=== PATIENT | male | born 1945 | race Caucasian/White ===

== ENCOUNTER 2017-04-05 18:08 | Emergency (ER) | payer MEDICARE, OTHER ==
[~2017-04-05] VITALS: Ht 182.9 cm; Wt 81.8 kg
[2017-04-05 18:16] VITALS: BP 120/70; PULSE 56; RESP 18; O2SAT 97
--- NOTE | 2017-04-05 18:21 | ED.REPORT ---
HPI-Chest Pain 40 and Over Date of Service Apr 05, 2017 ED Provider: Abelardo Henriquez DO Pt is a 71 year old male with a history of A-fib who presents to the ED complaining of atrial fibrillation onset this morning, but has not resolved upon his arrival to the ED. Although he is now asymptomatic, he reports lightheadedness and palpitations. He denies fever, nausea, vomiting, diarrhea, cough, cold, and flu. Per pt, he has experienced A-fib for the past 6 years. He currently takes a blood thinner (Eliquis). He states that he typically takes 200 mg flecainide at morning and 200 mg in the night, however he took an additional 500 mg today. Nursing Notes Stated Complaint: A-FIB Chief Complaint: Dysrhythmia/Cardiac Nursing Notes Reviewed: Yes Allergies: Coded Allergies: atorvastatin (Verified Adverse Reaction, Intermediate, CHEST PAIN, 04/05/17) metoprolol (Verified Adverse Reaction, Intermediate, CHEST PAIN, 04/05/17) Scheduled Allopurinol (Allopurinol) 100 Mg Tablet 100 MG PO QAM Apixaban (Eliquis) 5 Mg Tablet 5 MG PO BID Docusate Sodium (Docusate Sodium) 250 Mg Capsule 250 MG PO HS Flecainide Acetate (Flecainide Acetate) 100 Mg Tablet 200 MG PO BID Hydrochlorothiazide (Hydrochlorothiazide) 25 Mg Tablet 12.5 MG PO QAM Lisinopril (Lisinopril) 10 Mg Tablet 10 MG PO QAM Irmo-3/Dha/Epa/Fish Oil (Fish Oil 1,000 mg Softgel) 1 Each Capsule 1 EACH PO QAM Simvastatin (Simvastatin) 40 Mg Tablet 40 MG PO HS General Time Seen by MD: 18:14 Chief Complaint Other (A-fib) Hx Obtained From: Patient Arrived By: Walk-in Sudden in Onset?: Yes Onset Occurred: 5 - 8 hours ago Symptom Duration: Duration unknown Severity: Current: No pain currently Severity: Maximum: No pain Recent Healthcare: No recent doctor visit, No recent hospitalization Similar Sx Previous: Yes Past Medical History Past Medical History Reports: Atrial fibrillation Past Surgical History Denies Smoking History Unknown if Ever Smoker Social History Alcohol Use: "Social" Drug Use: Denies drug use Other Social History: Good social support Ambulatory Status Independent Review of Systems Denies cold Denies flu Constitutional: Denies: Chills, Fever Respiratory: Denies: Non-productive cough Cardiovascular: Reports: Palpitations GI: Denies: Diarrhea, Nausea, Vomiting Complete sys rev & neg: except as marked. Physical Exam Initial Vital Signs Vital Signs (First) Date Time Temp Pulse Resp B/P Pulse Ox O2 Delivery O2 Flow Rate FiO2 04/05/17 18:16 36.6 56 18 120/70 97 Room Air Initial VS: Reviewed Head / Eyes: Atraumatic, Normocephalic Neck: Supple, Full range of motion Extremities: Vascular intact, Neuro intact Skin: Warm, Dry, No cyanosis Neurologic: Alert, Oriented, Nonfocal Psychiatric: Mood/affect normal, Behavior normal General/Constitutional: Awake, Alert Respiratory / Chest: Atraumatic, Breath sounds NL, Breath sounds = bilat Cardiovascular: Heart rate NL, Regular rhythm, Heart sounds NL Abdomen: Atraumatic, Soft, Non-tender Interpretation & Diagnostics Lab Results Interpretation Result Diagram: 04/05/175 04/05/17 1825 Test 04/05/17 18:25 White Blood Count 9.0th/mm3 (3.8-10.1) Red Blood Count 5.07mil/mm3 (4.40-5.80) Hemoglobin 15.6g/dL (13.8-17.2) Hematocrit 44.8% (41.0-50.0) Mean Corpuscular Volume 88.4fL (81-100) Mean Corpuscular Hemoglobin 30.8pg (27.0-35.0) Mean Corpuscular Hemoglobin Concent 34.8% (32.0-37.0) Red Cell Distribution Width 13.1% (12.3-15.4) Platelet Count 280bil/L (150-400) Neutrophils (%) (Auto) 63.5% (40-74) Lymphocytes (%) (Auto) 22.6% (14-46) Monocytes (%) (Auto) 10.4% (4-12) Eosinophils (%) (Auto) 3.2% (0-5) Basophils (%) (Auto) 0.2% (0-3) Sodium Level 139mEq/L (134-144) Potassium Level 3.9mEq/L (3.5-5.2) Chloride Level 99mEq/L (97-108) Carbon Dioxide Level 22mmol/L (18-29) Blood Urea Nitrogen 22mg/dL (8-27) Creatinine 0.87mg/dL (0.76-1.27) Estimat Glomerular Filtration Rate 92mL/min (>59) Glucose Level 116mg/dL (60-99) Calcium Level 9.4mg/dL (8.5-10.1) Magnesium Level 2.1mg/dL (1.6-2.6) Total Bilirubin 0.5mg/dL (0.0-1.2) Aspartate Amino Transf (AST/SGOT) 23U/L (0-50) Alanine Aminotransferase (ALT/SGPT) 21U/L (0-44) Alkaline Phosphatase 75U/L (25-160) Troponin T < 0.010ug/L (0.0-0.011) Total Protein 7.2g/dL (6.4-8.4) Albumin 4.4g/dL (3.4-5.0) ECG Interpretation ECG Interpretation: Sinus rhythm with a rate of 64 Atrial premature complex Borderline prolonged NH interval Left bundle branch block Time: 18:19 Interpreted by: ED physician ECG Interpretation: qrs is not widened qrs is < 140 ms qt interval remains normal Time: 20:26 Interpreted by: ED physician X-Ray Chest Interpretation Chest Xray Interpretation: IMPRESSION: 1. No acute cardiopulmonary disease. Dictated by: Darrel Sanchez M.D. on 04/05/2017 at 19:13 View: Portable, 1 view Interpretation / Wet Read by: Interpret - Radiologist Re-Eval/Medical Decision Med Decision/Clinical Course 71-year-old male history of chronic paroxysmal atrial fibrillation for which he takes flecainide presents after having bout of A. fib. As it were he took an additional 500 mg of flecainide and this converted to sinus rhythm. He presented in sinus and remained in sinus. His QRS was not widened. He was not having ectopy. No signs of ventricular tachycardia. He was hemodynamically stable in a systematic. I consulted with our entertainment & media correspondent Dr. Lawson. He recommended checking on the electrolytes and the EKG. Otherwise he feels we can discharge his gentleman home however he is not to start his flecainide for 24 hours. I explained all this to Dragan. He agrees. At discharge she felt well. He is asymptomatic. He is in sinus rhythm with narrow complex QRS. QT was not prolonged. Source of Hx: Old records Time of Eval: 20:29 Re-Evaluation/Progress Note: Pt rechecked. Informed pt of plan for discharge. Pt understands and agrees with plan for discharge. F/U instructions and RTER warnings given. All questions addressed. Consultation : Referral / Consult Name: Sunny Ray MD Consulted With: Cardiology Call Returned at: 18:57 Local Driver: Agrees with eval, Agrees with plan Note: Reccomends not taking anymore fleconite tonight or tomorrow. Counseled Regarding: Diagnosis, Lab results, Need for follow-up, When/why to return to ED Discharge & Departure Primary Impression: Paroxysmal atrial fibrillation Additional Impression: Encounter for monitoring flecainide therapy Discharge Condition All VS Reviewed: Yes Condition: Stable Patient Instructions: A-fib (Atrial Fibrillation) (ED) Additional Instructions: Your EKG confirms that you are back in sinus rhythm. The laboratory work is reassuring. Stay on all of your medications except flecainide. Do not take anymore flecainide tonight or tomorrow morning. You may begin to take it again tomorrow evening. Call your entertainment & media correspondent or the referral entertainment & media correspondent on Thursday for follow-up. If you develop any chest palpitations or a rapid rhythm or if you feel sick whatsoever then you need to come back to the emergency department. The flecainide can lead to ventricular tachycardia so it is essential that you follow-up closely and you do not take flecainide for 24 hours. Referrals: Sunny Rya MD [facility] Scribe Attestation Portions of this note were transcribed by Jazmin Meza. I, Dr. Henriquez personally performed the history, physical exam and medical decision-making; I reviewed and confirmed the accuracy of the information in the transcribed note. Signed by : Carrie Bejarano, 04/05/17. copies to: Sunny Ray MD; [facility] Abelardo Henriquez DO Apr 05, 2017 18:21 Jazmin Ruiz Apr 05, 2017 18:59
[2017-04-05 18:28] LABS: BASOPHILS % (AUTO) 0.2 % (0-3); EOSINOPHILS % (AUTO) 3.2 % (0-5); MONOCYTES % (AUTO) 10.4 % (4-12); Mean Corpuscular Hemoglobin 30.8 pg (27.0-35.0); Mean Corpuscular Volume 88.4 fL (81-100); NEUTROPHILS % (AUTO) 63.5 % (40-74); Platelet Count 280 bil/L (150-400)
[2017-04-05] MEDS ORDERED: FLEC100T2 PO (18:42)
[2017-04-05] MEDS ORDERED: LISI10TA PO (18:42)
[2017-04-05] MEDS ORDERED: APIX5TAB PO (18:42)
[2017-04-05] MEDS ORDERED: HYDR25TA4 PO (18:42)
[2017-04-05] MEDS ORDERED: SIMV40TA5 PO (18:46)
[2017-04-05] MEDS ORDERED: DOCU250C2 PO (18:46)
[2017-04-05] MEDS ORDERED: ZYL100 PO (18:46)
[2017-04-05] MEDS ORDERED: OMEG-38 PO (18:46)
[2017-04-05 18:57] LABS: TROPONIN T < 0.010 ug/L (0.0-0.011)
[2017-04-05 19:06] LABS: Magnesium 2.1 mg/dL (1.6-2.6)
--- NOTE | 2017-04-05 19:14 | DRSVH ---
PROCEDURE: X-RAY CHEST ONE VIEW, PORTABLE ([id number]) INDICATIONS: AFIB TECHNIQUE: One view of the chest was acquired. COMPARISON: None. FINDINGS: Surgical changes and devices: None. Lungs and pleura: No pleural effusions or pneumothorax. Lungs are clear. Mediastinum: Mediastinal contours appear normal. Heart size is normal. Bones and chest wall: No suspicious bony lesions. Overlying soft tissues appear unremarkable. IMPRESSION: 1. No acute cardiopulmonary disease. Dictated by: Darrel Sanchez M.D. on 04/05/2017 at 19:13 Approved by: Darrel Sanchez M.D. on 04/05/2017 at 19:13
[2017-04-05 20:47] VITALS: BP 123/62; PULSE 63; RESP 16; O2SAT 96
== END 2017-04-05 20:35 | disposition home or self-care (01) ==
LOC: SED 18:08
DX: I48.0 Paroxysmal atrial fibrillation (principal); Z51.81 Encounter for therapeutic drug level monitoring; Z88.8 Allergy status to other drugs, medicaments and biological substances